=== PATIENT | female | born 1960 | race Caucasian/White ===

== ENCOUNTER 2024-12-08 15:02 | Observation (INO) | payer OTHER, SELFPAY ==
[2024-12-08] VITALS (7 sets, daily range): BP systolic 127–162; BP diastolic 9–109; BMI 23.8; BMI 23.3
[2024-12-08 12:01] LABS: Hematocrit 40.8 % (37.0-47.0); Hemoglobin 13.8 g/dL (12.0-16.0); Mean Corp Hgb Conc. 33.8 g/dL (33.0-37.0); Mean Corpuscular Volume 88.7 fL (81.0-99.0); Nucleated Red Blood Cells % 0 %; Platelet Count 242 10^3/uL (130-400); Red Cell Dist. Width 13.0 % (11.5-14.5)
[2024-12-08 12:25] LABS: ALT (SGPT) 18 U/L (0-35); Calcium 10.2 mg/dl (8.4-10.2); Chloride 109 mmol/L (98-107); Potassium 4.3 mmol/L (3.5-5.1); Sodium 143 mmol/L (135-145)
[2024-12-08 12:55] LABS: AST (SGOT) 27 U/L (14-36); Albumin 4.8 g/dl (3.5-5.0); Alkaline Phosphatase 44 U/L (38-126); Blood Urea Nitrogen 12 mg/dl (7-17); Carbon Dioxide 24 mmol/L (22-30); Estimated Creatinine Clearance 77 ml/min; Glucose 109 mg/dl (70-99); Total Protein 7.3 g/dl (6.3-8.2); eGFR > 60.00
--- NOTE | 2024-12-08 13:38 | ED.GENMED ---
History of Present Illness
General
Chief Complaint: Change in Mental Status
Time Seen by Provider: 12/08/24 12:51
History of Present Illness
History of Present Illness:
Patient is a 64-year-old woman with history of hyperlipidemia, parathyroidectomy presenting to the emergency department sudden onset memory loss. Last night she was in her usual state of health. This morning at 9 AM family noticed that she seemed
off. She was not doing her routine as normal. Then when she got to work work called her patient's as she was not acting like herself. Family noticed that she was having significant memory issues. She could not remember anything that
happened yesterday. She does not remember what happened earlier this morning either. No numbness tingling weakness dysarthria. No traumatic injuries. No chest pain urinary symptoms or respiratory symptoms. Patient at this time currently has no
complaints.
Phy Exam
Physical Exam
Physical Exam:
GENERAL: in no acute distress
HEENT: normocephalic, extraocular movements intact, moist oral mucosa
NECK: normal inspection
RESPIRATORY: no respiratory distress, clear to auscultation bilaterally
CARDIOVASCULAR: regular rate and rhythm
ABDOMEN/: soft, non-distended, non-tender to palpation, no rebound or guarding
EXTREMITIES: non-tender, no edema/swelling
NEUROLOGIC: NIH 0, alert and oriented x 3, cranial nerves II-XII intact, right upper extremity strength 5/5, left upper extremity strength 5/5, right lower extremity strength 5/5, left lower extremity strength 5/5, normal sensation to light touch,
normal cbxctd-ok-mywy and vaii-td-ihmx, gait not tested formally
SKIN: warm
Course
Orders/Labs/Results
Orders:
Orders
12/08/24 11:[address] [CT Head W/o Iv Contrast] Urgent
Comment:
Reason For Exam: memory issue
12/08/24 11:50
Complete Blood Count/With Diff Urgent
Comprehensive Metabolic Panel Urgent
12/08/24 13:45
Urinalysis Reflex To Culture Urgent
Date Specimen was Collected: 12/08/24
Time Specimen was Collected: 13:38
Urine Microscopic Reflex Cult Urgent
Abnormal Lab Results
12/08/24 12/08/24
11:50 13:45
Chloride 109 H mmol/L
(98-107)
Glucose 109 H mg/dl
(70-99)
Ur Occult Blood Reflex 2+ A
(Negative)
12/08/24 11:50
12/08/24 11:50
Vital Signs
Initial and Last Documented VS:
Initial Vital Signs
Temp Pulse Resp BP Pulse Ox
98.1 F 71 16 162/109 99
12/08/24 11:37 12/08/24 11:37 12/08/24 11:37 12/08/24 11:37 12/08/24 11:37
Last Documented Vital Signs
Temp Pulse Resp BP Pulse Ox
98.1 F 69 18 141/9 99
12/08/24 11:37 12/08/24 12:48 12/08/24 12:48 12/08/24 12:48 12/08/24 13:41
MDM/Problems Addressed
Differential Diagnosis Includes:
Patient is a 64-year-old woman presenting to the emergency department with sudden onset memory loss. On arrival vitals were initially notable for hypertension and exam shows a woman with an NIH of 0. She does not have any recollection of specific
events of yesterday or this morning. Differential consists of transient global amnesia versus mass. Consider infection though less likely. Blood work obtained prior to evaluation is unremarkable. CT scan does show asymmetry of the cavernous
sinus that could be related to vascular structures or small mass. I did discuss with neuro who recommended admission for MRI and EEG. Discussed with hospitalist who accepted patient to their service.
*Pulse Oximetry
SaO2: 99
Oxygen Mode of Delivery: Room air
Patient hypoxic: no (99)
*Critical Care Note
Total Time (30-74mins, 75-104mins- exclusive of procedures): Not Applicable
ED Attending Note
-
Portions of this chart may have been created with voice recognition software.� Occasional wrong word or��sound alike� substitutions may have occurred due to the inherent limitations of voice recognition software.
Discharge Plan
Departure
Patient Disposition: Admit
Date of Disposition: 12/08/24
Time of Disposition: 14:09
Presentation/result/management discussed w/ accepting MD/DO: Hospitalist
Discharge Problem:
TGA (transient global amnesia)
Referrals:
Rakesh Walker DO [Family Provider, Family Practice]
Interventions
Interventions:
*Risk Screen - Suicide Last Done: 12/08/24 11:42
*General Assessment Last Done: 12/08/24 12:48
*Neglect/Abuse Screening Last Done: 12/08/24 11:42
ED- Pulmonary Assessment Last Done: 12/08/24 12:50
ED- Neurological Assessment Last Done: 12/08/24 12:48
ED- Cardiac Assessment Last Done: 12/08/24 12:50
Discharge Date and Time
Print Language: INDONESIAN
[2024-12-08 14:02] LABS: Urine Character Clear (Clear)
[2024-12-08 14:12] LABS: Urine White Cell 0-2 /HPF (0-5)
--- NOTE | 2024-12-08 14:12 | CON.NEURO ---
Neuro Assessment/Plan
Assessment
transient global amnesia, now resolved. some amount of retrograde amnesia which is allowed. this condition is well described but poorly understood, speculated to be either a type of TIA, simple partial seizure, or it's own entity. [place]
standard of care would be MRI brain w/ contrast and routine EEG though the studies are rarely revealing and this rarely recurs
head CT imgs and report reviewed, I agree there is asymmetry of the soft tissue in the region of the cavernous sinus, larger on the left; doubt that it is related to the clinical presentation but agree this should be clarified with MRI w/ contrast
spoke with patient and family and decision to admit for brain mri w/o and with contrast, routine EEG
Consultation
Order
Date of Consultation: 12/08/24
Requesting Provider: Sancho Parker
Reason for Consult: memory loss
Subjective/Objective
Subjective Data
Date of Service: December 08, 2024
from ED notes
Patient is a 64-year-old woman with history of hyperlipidemia, parathyroidectomy presenting to the emergency department sudden onset memory loss. Last night she was in her usual state of health. This morning at 9 AM family noticed that she seemed
off. She was not doing her routine as normal. Then when she got to work work called her patient's as she was not acting like herself. Family noticed that she was having significant memory issues. She could not remember anything that
happened yesterday. She does not remember what happened earlier this morning either. No numbness tingling weakness dysarthria. No traumatic injuries. No chest pain urinary symptoms or respiratory symptoms. Patient at this time currently has no
complaints.
this afternoon, patient memory back to baseline except the gap from yesterday/this morning
Objective Data
Vital Signs
Temp Pulse Resp BP Pulse Ox
36.7 C 69 18 141/9 99
12/08/24 11:37 12/08/24 12:48 12/08/24 12:48 12/08/24 12:48 12/08/24 13:41
Lab Results
12/08/24 11:50
12/08/24 11:50
Sodium 143 mmol/L (135-145) 12/08/24 11:50
Potassium 4.3 mmol/L (3.5-5.1) 12/08/24 11:50
BUN 12 mg/dl (7-17) 12/08/24 11:50
Glucose 109 mg/dl (70-99) H 12/08/24 11:50
Calcium 10.2 mg/dl (8.4-10.2) 12/08/24 11:50
Patient Allergies
No Known Allergies Allergy (Unverified 12/08/24 11:42)
--- NOTE | 2024-12-08 14:39 | HPS.HSE ---
Family Physician
-
Family Physician: Rakesh Walker
Chief Complaint
-
memory loss
History of Present Illness
64-year-old female past medical history of hypertension, hyperlipidemia, prior parathyroidectomy, osteoporosis presenting with sudden onset memory loss. She was in her usual state of health last night. This morning at 9 AM family is noticed that
she was off. She was not doing her routine as normal. When she got to work workplace called her since she was not acting herself. She was having significant memory issues. She cannot remember anything that happened yesterday. Does not
remember what happened earlier this morning either. No numbness or tingling or weakness or difficulty speaking. No headache or vertigo or blurry vision. No trauma. No chest pain or urinary symptoms or shortness of breath. She denies any
complaints currently.
She recently pulled a muscle in her left neck and has some mild soreness.
Denies smoking or alcohol drugs.
No family history of neurological symptoms.
Medical History
Past Medical History
Past Medical History: Reports Other (hypertension, hyperlipidemia, prior parathyroidectomy, osteoporosis)
Past Surgical History: Reports Other ( hypertension, hyperlipidemia, prior parathyroidectomy, osteoporosis)
Social History
Tobacco: Non-smoker
Alcohol: None
Drug: None
Family History
Family History: Not pertinent
Allergies / Home Medications
Allergies reflects when Allergies were last updated in [facility].
Home Medications with original date entered in [facility]
Allergy/Medication List:
Allergies
Allergy/AdvReac Type Severity Reaction Status Date / Time
No Known Allergies Allergy Unverified 12/08/24 11:42
Home Medications
benazepril 10 mg tablet 10 mg PO QPM 12/08/24
calcium 315 mg (as citrate)-vitamin D3 5 mcg (200 unit) tablet (Calcium Citrate + D) 1 tab PO DAILY 12/08/24
rosuvastatin 5 mg tablet (Crestor) 5 mg PO QPM 12/08/24
Review of Systems
-
History Source: Patient
A 12 point ROS was completed and negative except as noted: Yes
Constitutional: Reports No Symptoms
EENT: Reports No Symptoms
Respiratory: Reports No Symptoms
Cardiac: Reports No Symptoms
Abdomen/GI: Reports No Symptoms
: Reports No Symptoms
Musculoskeletal: Reports No Symptoms
Skin: Reports No Symptoms
Neurological: Reports No Symptoms
Endocrine: Reports No Symptoms
Hematologic/Lymphatic: Reports No Symptoms
Psych: Reports No Symptoms
Physical Exam
Vital Signs
Vital Signs
Temp Pulse Resp BP Pulse Ox
98.1 F 69 18 141/9 99
12/08/24 11:37 12/08/24 12:48 12/08/24 12:48 12/08/24 12:48 12/08/24 13:41
Physical Exam
General: Well Developed, Well Nourished and No Apparent Distress
HEENT: NormoCephalic, Moist mucous membranes and Atraumatic
Respiratory: Clear
Cardiac: S1/S2 and Regular Rhythm; No Murmur or Rub
GI: Soft, Non Tender, Non Distended and Normal Bowel Sounds; No Organomegaly
Rectal: Deferred by Provider
Musculoskeletal: No Clubbing, No Cyanosis and No Edema
Skin: No Rash
Neuro: Nonfocal/grossly intact
Laboratory Results
-
12/08/24 11:50
12/08/24 11:50
Laboratory Results
Total Bilirubin 0.4 mg/dl (0.2-1.3) 12/08/24 11:50
AST 27 U/L (14-36) 12/08/24 11:50
ALT 18 U/L (0-35) 12/08/24 11:50
Alkaline Phosphatase 44 U/L (38-126) 12/08/24 11:50
Data Reviewed
-
Lab Data: Labs Reviewed by me
Old Records: Reviewed
Impression/Plan
-
IMPRESSION:
PLAN:
# Memory loss likely transient global amnesia versus rule out cavernous sinus mass versus seizure
-Urinalysis unremarkable
- CT head shows asymmetry in the region of the cavernous sinuses on the left compared to the right, small mass cannot be definitively excluded
- Check MRI brain with and without contrast
- Check EEG
- Neurology following
Essential hypertension
- Continue benazepril
Hyperlipidemia
- Continue statin
History of prior parathyroidectomy
Osteoporosis
Full code
DVT prophylaxis�SCDs
Regular diet
--- NOTE | 2024-12-08 15:21 | CM ---
CM reviewed chart and met with pt bedside in ED. RAFITA reviewed and signed.
Lives with her in multistory home, [address], first floor half BA, second floor BR/full BA
Pt independent in ADLs, personal care and ambulation at baseline. Still working and driving.
No DME, no hx VN/SNF.
PCP: Dr Rakesh Walker
Pharmacy: [facility]
Discharge plan: Anticipate home pending ongoing medical evaluation
[2024-12-08] MEDS: CRESTOR 5 MG PO (17:07)
[2024-12-08] MEDS: ZESTRIL 10 MG PO (17:07)
[2024-12-09 03:30] VITALS: BP 109/64
[2024-12-09 06:26] LABS: Hematocrit 40.5 % (37.0-47.0); Hemoglobin 13.6 g/dL (12.0-16.0); Mean Corp Hgb Conc. 33.6 g/dL (33.0-37.0); Mean Corpuscular Volume 88.0 fL (81.0-99.0); Nucleated Red Blood Cells % 0 %; Platelet Count 217 10^3/uL (130-400); Red Cell Dist. Width 13.1 % (11.5-14.5)
[2024-12-09 06:48] LABS: ALT (SGPT) 16 U/L (0-35); AST (SGOT) 23 U/L (14-36); Albumin 4.1 g/dl (3.5-5.0); Alkaline Phosphatase 43 U/L (38-126); Blood Urea Nitrogen 10 mg/dl (7-17); Calcium 9.1 mg/dl (8.4-10.2); Carbon Dioxide 24 mmol/L (22-30); Chloride 112 mmol/L (98-107); Estimated Creatinine Clearance 77 ml/min; Glucose 99 mg/dl (70-99); Potassium 4.1 mmol/L (3.5-5.1); Sodium 143 mmol/L (135-145); Total Protein 6.5 g/dl (6.3-8.2); eGFR > 60.00
[2024-12-09 07:10] VITALS: BP 130/85
--- NOTE | 2024-12-09 07:34 | W.PN.HOSP.TC ---
Today's Communication/Plan
-
Discharge today
Assessment / Plan
Assessment / Plan
Physical Exam
General: Well Developed, Well Nourished and No Apparent Distress
HEENT: NormoCephalic, Moist mucous membranes and Atraumatic
Respiratory: Clear
Cardiac: S1/S2 and Regular Rhythm
GI: Soft, Non Tender, Non Distended and Normal Bowel Sounds
Musculoskeletal: No Cyanosis and No Edema
Skin: Warm. Dry.
Neuro: Nonfocal/grossly intact
Assessment/Plan
64-year-old female with past medical history of hypertension, hyperlipidemia, prior parathyroidectomy and osteoporosis, presented with sudden onset memory loss. She was in her usual state of health the night before presentation. In the morning at 9
AM family noticed that patient was off. She was not doing her routine as normal. When she got to work workplace called her since she was not acting herself. She was having significant memory issues. She could remember anything that happened
the day before, and could not remember what happened earlier on the morning of presentation either. No numbness or tingling or weakness or difficulty speaking. No headache or vertigo or blurry vision. No trauma. No chest pain or urinary symptoms
or shortness of breath. She recently pulled a muscle in her left neck and has some mild soreness. Denies smoking or alcohol drugs.
No family history of neurological symptoms.
#Transient global amnesia - resolved (but some amount of retrograde amnesia, which is allowed)
- Urinalysis unremarkable
- CT head showed asymmetry in the region of the cavernous sinuses on the left compared to the right, small mass could not be definitively excluded
- MRI brain with and without contrast unremarkable except for flow voids of the larger intracranial vessels, and mild asymmetric venous prominence along the left cavernous sinus
- EEG performed on 12/09/24
- Neurology following
Essential hypertension
- Continue benazepril
Hyperlipidemia
- Continue statin
History of prior parathyroidectomy
Osteoporosis
Full code
DVT prophylaxis�SCDs. Lovenox.
Regular diet
On 12/09/24, I spoke to patient's Carlos, inside patient's room, and answered all of his questions and concerns to satisfaction.
More than 30 minutes spent in discharge including
Final examination of the patient
Summarizing hospital stay
Instructions for continuing care to all relevant caregivers
Preparation of discharge records, prescriptions, and referral forms
Total time spent (in minutes): 35
Anticipated Discharge: Today
Subjective/Interval History
-
Date of Service: December 09, 2024
Patient was seen and examined. Her was present in her room at the time of the patient encounter. She denied any complaints. Her memory improved. Patient and her would like to be discharged today.
Objective Data
-
Labs:
Laboratory Results
12/09/24
06:01
WBC 7.6
Hgb 13.6
Hct 40.5
Plt Count 217
Sodium 143
Potassium 4.1
Chloride 112 H
Carbon Dioxide 24
BUN 10
Creatinine 0.7
Glucose 99
Calcium 9.1
Total Bilirubin 0.4
AST 23
ALT 16
Alkaline Phosphatase 43
Vital Signs:
Vital Signs
Temp Pulse Resp BP Pulse Ox
97.5 F 58 16 109/64 98
12/09/24 03:30 12/09/24 03:30 12/09/24 03:30 12/09/24 03:30 12/09/24 03:30
[2024-12-09] MEDS: OSCAL 500 + D 500 MG PO (08:37)
[2024-12-09 11:05] VITALS: BP 129/88
--- NOTE | 2024-12-09 13:38 | W.DCSUMMARY ---
Discharge Summary
Discharge Data
Date of Admission: 12/08/24
Date of Discharge: 12/09/24
Total time spent discharging patient (in min): 35
-
Pending Results: No
Hospital Course
64-year-old female past medical history of hypertension, hyperlipidemia, prior parathyroidectomy and osteoporosis presented with sudden onset memory loss. On the morning of the day of presentation at ~9 AM family noticed that patient was off. She
was not doing her routine as normal. She was having significant memory issues. She did not have numbness or tingling or weakness or difficulty speaking, headache, vertigo, blurry vision, trauma, chest pain, urinary symptoms or shortness of breath.
Neurology was consulted. CT Head and MRI Brain findings are as below. EEG was normal. Patient's memory improved and she was stable for discharge.
Discharge Plan
-
Patient Disposition: Home (Routine Discharge)
Discharge Diagnosis/Procedures: Transient Global Amnesia - resolved
Essential Hypertension
Hyperlipidemia
History of prior parathyroidectomy
Osteoporosis

CT Head (as per radiologist's report)
'FINDINGS:
There is mild bilaterally symmetric prominence of the extra-axial CSF spaces representing volume loss. Ventricles are normal in size. There is no acute bleed, mass effect, or midline shift. Posterior fossa structures within normal limits. No acute
loss of lockhart-white differentiation is identified. There is asymmetric larger size of the soft tissue attenuation which is associated with the cavernous sinus on the left as compared with the right (image #5 series 201, image #19 and coronal series).
There is no skull fracture.
IMPRESSION: Asymmetry in the region of the cavernous sinuses as above. No previous studies for comparison. This could be related to vascular structures. Small mass cannot be definitively excluded at noncontrast CT. This could be further evaluated
with follow-up MRI of the brain with and without contrast.'

MRI Brain (as per radiologist's report):
'FINDINGS:
Diffusion imaging shows no hyperacute, acute, or early subacute infarction.
There is no abnormal brain parenchymal signal intensity. Minimal age-related atrophy.
There is no mass or mass effect, or extra-axial fluid collection.
The ventricles are normal in size.
Flow voids of the larger intracranial vessels are present. There is mild asymmetric venous prominence along the left cavernous sinus.
Paranasal sinuses and mastoid air cells are predominantly clear.
Marrow signal pattern is within normal limits.
There is no abnormal leptomeningeal or brain parenchymal enhancement.
IMPRESSION:
No acute intracranial abnormality noted.'
Condition: Good
Diet: Low Fat, Low Cholesterol and Low Sodium
Activity: As tolerated
Activity Restrictions/Additional Instructions:
You need a repeat urinalysis at your primary care provider's to see whether you still have hematuria/microscopic blood in your urine; you may need to see a urologist (discuss this with your primary care provider within the next 1 week).
Referrals:
Rakesh Walker, DO [Family Provider, Family Practice] - in less than 1 week
Referral Note: Needs a repeat urinalysis to see whether patient still has hematuria; may need urology referral
Prescriptions:
Continued
benazepril 10 mg Tablet
10 mg PO QPM
rosuvastatin [Crestor] 5 mg Tablet
5 mg PO QPM
calcium citrate-vitamin D3 [Calcium Citrate + D] 315 mg-5 mcg (200 unit) Tablet
1 tab PO DAILY
Discharge Orders:
Discharge Patient (As Directed); Ordered 12/09/24
Ordered By: Matthieu Stern
Discharge Date and Time
Discharge Date/Time: 12/09/24 14:33
Print Language: PERUVIAN
--- NOTE | 2024-12-09 14:02 | CM ---
MD entered order for discharge.
Spoke with pt and Carlos at bedside.
Pt ready for discharge.
Offered VN she declined need.
drove her home
PLAN Home no needs
--- NOTE | 2024-12-09 16:25 | EEG.RPT ---
Electroencephalogram Report
Recording
Date of EE12/09/24
Type of EEG: Routine
Length of EEG recordin mins
Done with Video Recording: Yes
Patient Status: Inpatient
Recording Conditions: Awake
Hyperventilation Performed: Yes
Photic Stimulation Performed: Yes
Report
Clinical Background:�transient global amnesia
Introduction: A routine bedside EEG was done using International 10-20 electrode placement protocol.
Background: In the most alert state, the PDR is9 Hz in frequency with normal amplitude. There is spontaneous variability and reactivity.�
Sleep: No sleep is seen.�
Focal/epileptiform: There were no focal or epileptiform discharges. No clinical or electrographic seizures occurred during this recording.
Photic stimulation: resulted in normal driving response. There was no photo myogenic or photoparoxysmal response.�
Hyperventilation: symmetric slowing
Impression: Normal EEG
== END 2024-12-09 14:33 | disposition home or self-care (01) ==
LOC: 4 EAST ACU 15:02
PROVIDERS: Emergency Medicine; ADMITTING PHYSICIAN Hospitalist; ATTENDING PHYSICIAN Hospitalist; CONSULT PHYSICIAN Psychiatry & Neurology Clinical Neurophysiology; EMERGENCY PHYSICIAN Student in an Organized Health Care Education/Training Program; FAMILY PHYSICIAN Family Medicine
DX: G45.4 Transient global amnesia (principal); R41.82 Altered mental status, unspecified; E78.5 Hyperlipidemia, unspecified; I10 Essential (primary) hypertension; M54.2 Cervicalgia; M81.0 Age-related osteoporosis without current pathological fracture; R22.0 Localized swelling, mass and lump, head; Z90.89 Acquired absence of other organs; Z98.890 Other specified postprocedural states
CPT/HCPCS: 70450; 70553; 80053; 81003; 81015; 85025; 95816; 99285; A9575; G0378